=== PATIENT | male | born 1995 | race Two or more races ===

== ENCOUNTER 2018-06-12 06:02 | Emergency (ER) | payer OTHER ==
[~2018-06-12] VITALS: Ht 182.9 cm; Wt 90.7 kg
--- NOTE | 2018-06-12 06:25 | NUR ---
PT BIBSELF FROM HOME C/C WORSENING HEADACHE X2 DAYS, -N/V/D. -BLURRED VISSION -DIZZINESS. +NECK PAIN. SICK X 2 DAYS. AFEBRILE LAST DOSE MOTRIN 9HRS AGO. PT AOX4. PT ON MONITOR IN BED 12. WILL CONTINUE TO MONITOR.
[2018-06-12] MEDS ORDERED: KETOROLAC TROMETHAMINE INJ 30 MG/ML VIAL IV ONE (07:00)
[2018-06-12] MEDS ORDERED: IV NS 0.9% 1,000 ML BAG IV ONE ×2 (07:00→09:30)
[2018-06-12] MEDS ORDERED: KETOROLAC TROMETHAMINE 15 MG/ML VIAL ONE (07:08)
[2018-06-12 07:12] LABS: BASOPHILS % (AUTO) 0.2 % (0.0-2.0); EOSINOPHILS % (AUTO) 0.2 % (0.0-6.0); HEMATOCRIT 45 % (39-51); HEMOGLOBIN 15.5 g/dL (13.5-17.5); LYMPHOCYTES % (AUTO) 6.1 % (20.0-44.0); MEAN CORPUSCULAR HGB CONC 34 g/dl (31.0-36.0); MEAN CORPUSCULAR VOLUME 93 fL (80-96); MONOCYTES # (AUTO) 0.9 /CMM (0.1-1.30); MONOCYTES % (AUTO) 5.8 % (2.0-12.0); NEUTROPHILS # (AUTO) 14.1 /CMM (1.8-8.9); NEUTROPHILS % (AUTO) 87.7 % (43.0-81.0); PLATELET COUNT (AUTO) 269 /CMM (150-450); RED BLOOD CELL COUNT(AUTO) 4.86 MIL/uL (4.5-6.0); WHITE BLOOD COUNT (AUTO) 16.1 K/uL (4.3-11.0)
[2018-06-12 07:18] LABS: CALCIUM, SERUM 9.6 mg/dL (8.5-10.1); CREATININE 1.4 mg/dL (0.6-1.3); POTASSIUM 3.9 mmol/L (3.5-5.1)
[2018-06-12] MEDS ORDERED: ACETAMINOPHEN 650 MG/20.3 ML UDC PO ONE (07:30)
[2018-06-12] MEDS ORDERED: ACETAMINOPHEN 325 MG TABLET ONE (07:32)
--- NOTE | 2018-06-12 07:38 | NUR ---
RECIEVED PT FROM OUTGOING RN JUNG, PT STABLE. GONE TO CT
--- NOTE | 2018-06-12 09:33 | NUR ---
ADDENDUM: Intravenous End Time Documentation: Normal saline 1 liter (IV-WO) : start time: 0933 am; end time: 1033 am : IV site: LAC # 18 Port #1
--- NOTE | 2018-06-12 09:54 | NUR ---
Patient discharged to home in stable condition. Written and verbal after care instructions given. Patient verbalizes understanding of instruction.IV
[2018-06-12 09:56] VITALS: BP 128/86
--- NOTE | 2018-06-18 15:15 | NUR ---
1 L NS IV STOP TIME 0815 HRS, 1L NS IV STOP TIME 1045 HRS
== END 2018-06-12 09:58 | disposition home or self-care (01) ==
LOC: ER 06:05
DX: J06.9 Acute upper respiratory infection, unspecified (principal); R51 Headache; E86.0 Dehydration
CPT/HCPCS: 36415; 70450; 80048; 85025; 87070; 87804 ×2; 87880; 96361; 96374; 99284; A4606; A6403; J1885; J7030 ×2; 86403-TC; 87400